=== PATIENT | female | born 1985 | race Caucasian/White ===

== ENCOUNTER 2017-01-18 23:59 | Emergency (ER) | payer MEDICAID ==
[~2017-01-18] VITALS: Ht 162.6 cm; Wt 56.7 kg
[2017-01-19 00:26] VITALS: BP 109/68
== END 2017-01-19 01:21 | disposition home or self-care (01) ==
LOC: ER 01-19 00:10
DX: J06.9 Acute upper respiratory infection, unspecified (principal)
CPT/HCPCS: 71010; 99283; A4606; Z7610